=== PATIENT | female | born 1980 | race Caucasian/White ===

== ENCOUNTER 2016-11-29 16:00 | Emergency (ER) | payer BC ==
[2016-11-29 16:37] VITALS: BP 108/85
--- NOTE | 2016-11-29 16:57 | UC ---
Throat Pain/Nasal David HPI - HPI Summary HPI Summary: ST getting worse throughout the day, has had nasal congestion for 2-3 days. Has 3-y-o daughter who was dx with strep 4 days ago. No fever, vomiting, or rash. Pt has had tonsils removed. - History of Current Complaint Chief Complaint: UCGeneralIllness Stated Complaint: SORE THROAT Time Seen by Provider: 11/29/16 16:36 Hx Obtained From: Patient Hx Last Menstrual Period: 11/19/16 ?: No Onset/Duration: Gradual Onset, Lasting Hours Severity: Mild Cough: None - Allergies/Home Medications Allergies/Adverse Reactions: Allergies Allergy/AdvReac Type Severity Reaction Status Date / Time No Known Allergies Allergy Verified 11/29/16 16:37 Home Medications: Home Medications Methylphenidate ER TAB* [Concerta ER TAB*] 1 DAILY 11/29/16 [History] Omeprazole CAP* [Prilosec CAP* 20 MG] 1 DAILY 11/29/16 [History] buPROPion TAB* [Wellbutrin TAB*] 1 DAILY 11/29/16 [History] PMH/Surg Hx/FS Hx/Imm Hx Previously Healthy: Yes Endocrine History Of: Denies: Diabetes, Thyroid Disease Cardiovascular History Of: Denies: Cardiac Disorders, Hypertension Respiratory History Of: Denies: COPD, Asthma GI/ History Of: Denies: Ulcer - Surgical History Surgical History: Yes Surgery Procedure, Year, and Place: T&A - Family History Known Family History: Positive: None - Social History Lives: With Family Alcohol Use: Rare Substance Use Type: None Smoking Status (MU): Former Smoker When Did the Patient Quit Smoking/Using Tobacco: 1999 - Immunization History Most Recent Influenza Vaccination: none Most Recent Tetanus Shot: unsure Most Recent Pneumonia Vaccination: unsure Review of Systems Constitutional: Negative Skin: Negative Eyes: Negative ENT: Sore Throat Respiratory: Negative Cardiovascular: Negative Gastrointestinal: Negative Genitourinary: Negative Motor: Negative Neurovascular: Negative Musculoskeletal: Negative Neurological: Negative Psychological: Negative All Other Systems Reviewed And Are Negative: Yes Physical Exam Triage Information Reviewed: Yes Appearance: Well-Appearing, No Pain Distress, Well-Nourished Vital Signs: Initial Vital Signs Temp 98.3 F 11/29/16 16:32 Pulse 96 11/29/16 16:32 Resp 18 11/29/16 16:32 BP 108/85 11/29/16 16:32 Pulse Ox 98 11/29/16 16:32 Vital Signs Reviewed: Yes Eye Exam: Normal Eyes: Positive: Conjunctiva Clear ENT: Positive: Hearing grossly normal, TMs normal. Negative: Tonsillar exudate - s/p tonsillectomy Dental Exam: Normal Neck exam: Normal Neck: Positive: Supple, Nontender, No Lymphadenopathy Respiratory Exam: Normal Respiratory: Positive: Chest non-tender, Lungs clear, Normal breath sounds, No respiratory distress, No accessory muscle use Cardiovascular Exam: Normal Cardiovascular: Positive: RRR, No Murmur Musculoskeletal Exam: Normal Neurological Exam: Normal Neurological: Positive: Alert Psychological Exam: Normal Skin Exam: Normal Throat Pain/Nasal Course/Dx - Differential Dx/Diagnosis Provider Diagnoses: Pharyngitis, likely viral Discharge - Discharge Plan Condition: Stable Disposition: HOME Patient Education Materials: Pharyngitis (ED) Referrals: Keya Caba MD [Primary Care Provider] - 1 Week Additional Instructions: Rapid strep negative, throat culture pending. Call or return if you develop increasing fever, shortness of breath, chest pain , bloody sputum, or otherwise worsen. If you have not improved at all after several days, contact your primary care physician or return here.
== END 2016-11-29 17:10 | disposition home or self-care (01) ==
LOC: UCEAST 16:00
DX: J02.9 Acute pharyngitis, unspecified (principal); F17.210 Nicotine dependence, cigarettes, uncomplicated
CPT/HCPCS: 87070; 87651; 99211; G0463

== ENCOUNTER 2018-07-20 15:02 | Emergency (ER) | payer OTHER ==
--- NOTE | 2018-07-20 15:48 | ED ---
HPI Chest Pain - HPI Summary HPI Summary: Pt is a 38 y/o female who presents to the ED c/o CP. 2 weeks ago, she thought she was having a panic attack and was having palpitations. She happened to be with a physician, who said her BP was high and advised her to go to her PCP. Pt has not followed up with this. Yesterday, she was driving and felt a bubble going through her chest. Pt felt SOB and lightheaded, and near-syncopal. Today she still feels SOB and lightheaded, and also c/o left-sided neck tingling. She denies any current CP. Pt also has a hernia. She denies any cardiac history. - History of Current Complaint Chief Complaint: EDChestPainROMI Time Seen by Provider: 07/20/18 15:17 Hx Obtained From: Patient Hx Last Menstrual Period: 11/19/16 Onset/Duration: Started Weeks Ago - 2, Still Present Timing: Intermittent Current Severity: Moderate Pain Intensity: 3 Pain Scale Used: 0-10 Numeric Chest Pain Location: Diffuse Chest Pain Radiates: Yes Chest Pain Radiates To:: Neck - left, tingling Character: Other: - Unsure how to describe, "bubble" Aggravating Factor(s): Nothing Alleviating Factor(s): Nothing Associated Signs and Symptoms: Positive: Chest Pain, Tingling, Shortness of Breath, Lightheadedness - Allergy/Home Medications Allergies/Adverse Reactions: Allergies Allergy/AdvReac Type Severity Reaction Status Date / Time No Known Allergies Allergy Verified 07/20/18 15:13 PMH/Surg Hx/FS Hx/Imm Hx Endocrine/Hematology History: Denies: Hx Diabetes, Hx Thyroid Disease Cardiovascular History: Denies: Hx Hypertension Respiratory History: Denies: Hx Asthma, Hx Chronic Obstructive Pulmonary Disease (COPD) GI History: Denies: Hx Ulcer History: Reports: Other Problems/Disorders - Ovarian cysts - Cancer History Hx Chemotherapy: No Hx Radiation Therapy: No - Surgical History Surgery Procedure, Year, and Place: T&A Infectious Disease History: No Infectious Disease History: Denies: Hx Clostridium Difficile, Hx Hepatitis, Hx Human Immunodeficiency Virus (HIV), Hx of Known/Suspected MRSA, Hx Shingles, Hx Tuberculosis, Hx Known/ Suspected VRE, Hx Known/Suspected VRSA, History Other Infectious Disease, Traveled Outside the [place] in Last 30 Days - Family History Known Family History: Positive: Diabetes - Social History Alcohol Use: Occasionally Hx Substance Use: No Substance Use Type: Reports: None Hx Tobacco Use: Yes Smoking Status (MU): Former Smoker Review of Systems Positive: Chest Pain Positive: Shortness Of Breath Neurological: Other - Lightheadedness Positive: Paresthesia - Left neck, Syncope - Near All Other Systems Reviewed And Are Negative: Yes Physical Exam - Summary Physical Exam Summary: Appearance: The patient is well-nourished in no acute distress and in no acute pain. Skin: The skin is warm and dry and skin color reflects adequate perfusion. HEENT: The head is normocephalic and atraumatic. The pupils are equal and reactive. The conjunctivae are clear and without drainage. Nares are patent and without drainage. Mouth reveals moist mucous membranes and the throat is without erythema and exudate. The external ears are intact. The ear canals are patent and without drainage. The tympanic membranes are intact. Neck: The neck is supple with full range of motion and non-tender. There are no carotid bruits. There is no neck vein distension. Respiratory: Chest is non-tender. Lungs are clear to auscultation and breath sounds are symmetrical and equal. Cardiovascular: Heart is regular rate and rhythm. There is no murmur or rub auscultated. There is no peripheral edema and pulses are symmetrical and equal. No bruit. Abdomen: The abdomen is soft and non-tender. There are normal bowel sounds heard in all four quadrants and there is no organomegaly palpated. Musculoskeletal: There is no back tenderness noted. Extremities are non-tender with full range of motion. There is good capillary refill. There is no peripheral edema or calf tenderness elicited. Neurological: Patient is alert and oriented to person, place and time. The patient has symmetrical motor strength in all four extremities. Cranial nerves are grossly intact. Deep tendon reflexes are symmetrical and equal in all four extremities. Psychiatric: The patient has an appropriate affect and does not exhibit any anxiety or depression. Triage Information Reviewed: Yes Vital Signs On Initial Exam: Initial Vitals Temp Pulse Resp BP Pulse Ox 97.8 F 111 15 131/102 100 07/20/18 15:11 07/20/18 15:11 07/20/18 15:11 07/20/18 15:11 07/20/18 15:11 Vital Signs Reviewed: Yes Diagnostics - Vital Signs Vital Signs Temp Pulse Resp BP Pulse Ox 07/20/18 15:11 97.8 F 111 15 131/102 100 - Laboratory Result Diagrams: 07/20/18 15:47 07/20/18 15:46 Lab Statement: Any lab studies that have been ordered have been reviewed, and results considered in the medical decision making process. - Radiology CXR Radiology Interpretation Completed By: Radiologist Summary of Radiographic Findings: IMPRESSION: #. No evidence for acute intrathoracic disease. The ED physician reviewed this radiology report. - CT Chest/Thoracic CTA CT Interpretation Completed By: Radiologist Summary of CT Findings: IMPRESSION: No pulmonary embolism - EKG 15:19 Cardiac Rate: Tachycardia - 104 bpm EKG Rhythm: Sinus Rhythm Ectopy: None Summary of EKG Findings: Non-specific diffuse ST and T wave changes. Chest Pain Course/Dx - Course Course Of Treatment: Ms. Tellez presented to the emergency department complaining of chest pain which she characterizes as an uncomfortable feeling and sometimes heavy. She points to her sternal notch. She does complain a little bit of shortness of breath. She also complains sometimes of some uncomfortable/tingly feeling in the left side of her neck. On arrival she was nontoxic in appearance with normal vital signs although she was borderline tachycardic. This did improve during her stay. Her EKG showed only borderline tachycardia although there were diffuse nonspecific ST-T wave changes. Labs including a delayed troponin were within normal limits aside from a very slightly elevated d-dimer. For that reason a CTA was obtained and was negative. She remained stable on the monitor here without signs of ectopy. This is likely related to anxiety however that his diagnosis of exclusion and I recommended follow-up with her PCP and symptomatic treatment. - Diagnoses Provider Diagnoses: Chest pain Discharge - Sign-Out/Discharge Documenting (check all that apply): Patient Departure - DC - Discharge Plan Condition: Stable Disposition: HOME Patient Education Materials: Chest Pain (ED) Referrals: Keya Caba MD [Primary Care Provider] - Additional Instructions: Follow up with your PCP in 2 days Return to ED for any new or worsening symptoms - Billing Disposition and Condition Condition: STABLE Disposition: Home - Attestation Statements Document Initiated by Scribe: Yes Documenting Scribe: Daisy Dixon Provider For Whom Scribe is Documenting (Include Credential): Dave Garcia MD Scribe Attestation: IDaisy and Glenda Dixon , scribed for Dave Garcia MD on 07/20/18 at 2135. Scribe Documentation Reviewed: Yes Provider Attestation: The documentation as recorded by the scribe, Daisy Tomas and Glenda Dixon accurately reflects the service I personally performed and the decisions made by me, Dave Garcia MD Status of Scribe Document: Viewed
[2018-07-20 15:55] LABS: ABS Basophils 0 10^3/ul (0-0.2); ABS Eosinophils 0.1 10^3/ul (0-0.6); ABS Lymphocytes 2.7 10^3/ul (1.0-4.8); ABS Monocytes 0.5 10^3/ul (0-0.8); ABS Neutrophils 4.4 10^3/ul (1.5-7.7); ABS Nucleated RBC 0 10^3/ul; Hematocrit 42 % (35-47); Hemoglobin 14.5 g/dl (12.0-16.0); Lymphocyte % 35.1 %; Mean Corpuscular HGB Conc 34 g/dl (31-36); Mean Corpuscular Hemoglobin 30 pg (27-31); Mean Corpuscular Volume 88 fL (80-97); Mean Platelet Volume 6.7 fL (7.4-10.4); Nucleated Red Blood Cells % 0; Platelet Count 336 10^3/ul (150-450); Red Blood Count 4.83 10^6/ul (4.00-5.40); Red Cell Distribution Width 13 % (10.5-15); White Blood Count 7.8 10^3/ul (3.5-10.8)
[2018-07-20 16:24] LABS: INR 0.91 (0.77-1.02)
[2018-07-20] MEDS ORDERED: Iohexol 350* (CONTRAST) 500 ML MDV IV ONE (18:33)
[2018-07-20 22:00] VITALS: BP 125/81
== END 2018-07-20 22:01 | disposition home or self-care (01) ==
LOC: ED 15:02
DX: R07.9 Chest pain, unspecified (principal); Z87.891 Personal history of nicotine dependence
CPT/HCPCS: 36415; 71045; 71275; 80053; 83605; 84443; 84484; 85025; 85379; 85610; 93005; 96374; 99284; Q9967

== ENCOUNTER 2018-09-12 08:19 | Emergency (ER) | payer OTHER ==
[2018-09-12 08:34] VITALS: BP 133/83
--- NOTE | 2018-09-12 08:40 | UC ---
Shoulder Pain HPI - HPI Summary HPI Summary: Pt presents to with right shoulder pain s/p fall 8 days ago. Pt did not strike head or LOC. Pt with persistent pain right anterior shoulder. Pain increases with movement - extension, abduction. No previous injury to same. Pt RHD. Pt has taken MOtrin and used CBD oil with little improvement. Pt is a massage therapist and aggravates shoulder. No paresthesia. Pt denies elbow, wrist pain. PT did develop abraison right elbow - unknown last tetanus - pt declined booster today. Pt states she is getting tightness in upper back from splinting arm Not medications reviewed this visit - History of Current Complaint Chief Complaint: UCUpperExtremity Stated Complaint: SHOULDER INJURY Time Seen by Provider: 09/12/18 08:39 Hx Obtained From: Patient Hx Last Menstrual Period: 09/09/18 Onset/Duration: Sudden Onset Timing: Constant Severity Initially: Mild Severity Currently: Mild Location Of Pain: Is Discrete @ - right anterior shoulder Pain Intensity: 2 Character: Sharp, Spasmodic, Stiffness Aggravating Factor(s): Movement, Lifting, Extension, Abduction Alleviating Factor(s): Rest Associated Signs And Symptoms: Positive: Negative - Allergies/Home Medications Allergies/Adverse Reactions: Allergies Allergy/AdvReac Type Severity Reaction Status Date / Time No Known Allergies Allergy Verified 07/20/18 15:13 PMH/Surg Hx/FS Hx/Imm Hx Previously Healthy: Yes - Surgical History Surgical History: Yes Surgery Procedure, Year, and Place: T&A - Family History Known Family History: Positive: Diabetes, Non-Contributory - Social History Occupation: Employed Full-time Lives: With Family Alcohol Use: Occasionally Substance Use Type: None Smoking Status (MU): Former Smoker When Did the Patient Quit Smoking/Using Tobacco: 1999 - Immunization History Most Recent Influenza Vaccination: none Most Recent Tetanus Shot: unsure Most Recent Pneumonia Vaccination: unsure Review of Systems All Other Systems Reviewed And Are Negative: Yes Constitutional: Positive: Negative Skin: Positive: Other - scab right elbow Musculoskeletal: Positive: Other: - right anterior shoulder Neurological: Positive: Negative. Negative: Paresthesia, Numbness Physical Exam - Summary Physical Exam Summary: Vital Signs Reviewed: Yes A+Ox3, no distress Eyes: Conjunctiva Clear ENT: Hearing grossly normal neck: supple Respiratory: Positive: No respiratory distress, No accessory muscle use, CTA throughout no w/r Cardiovascular: skin color reflect adequate perfusion 2+ radial, 2+ ulnar CBT < 2 sec Musculoskeletal Exam: No pain c/t/l/s Full AROM no pain along clavicle. Pt with pain with palp right anterior shoulder. + full flexion/extension wrist, elbow + pronate/supinate elbow. + extension limited second to pain at 45 degrees. Passive extension greater than 45 degrees. + abduction with discomfort greater than 20 degrees. + passive abduction to 90. Neurological: Positive: Alert, ambulatory without difficulty. 5/5 grasp + thumb up, a ok, finger spread, finger cross + gross sensation throughout Psychological: Positive: Normal Response To Family Skin: Positive: no rash, no ecchymosis, pt with scabbed abrasion right elbow. no concern for celluitis Triage Information Reviewed: Yes Vital Signs: Initial Vital Signs Temp 97.9 F 09/12/18 08:27 Pulse 87 09/12/18 08:27 Resp 18 09/12/18 08:27 BP 133/83 09/12/18 08:27 Pulse Ox 100 09/12/18 08:27 Diagnostics - Radiology No standard instances Radiology Interpretation Completed By: Radiologist - Patient Name: AASHISH LEÓN Medical Record#: [id number] Ordering Physician: Fernanda Rivas MD Acct.#: [id number] : 1980 Age: 38 Sex: F Location: [facility] Exam Date: 09/12/18904 ADM Status: REG ER Order Information: SHOULDER RIGHT 2+ VWS Accession Number: [id number] CPT: 74555 INDICATION: Right anterior shoulder pain since a fall 8 days earlier COMPARISON: None. TECHNIQUE: 4 views of the right shoulder were obtained. FINDINGS: The adequately corticated bones are in normal alignment. Joint spaces appear maintained. No fracture, dislocation or focal bony abnormality is seen. IMPRESSION: Normal radiograph of the right shoulder. If the patient's symptoms persist, follow-up imaging is recommended. <Electronically signed by Mayo Edwards MD in OV> 09/12/18935 Dictated By: Mayo Edwards MD Dictated Date/Time: 09/12/18935 Transcribed Date/Time: 09/12/18934 Copy to: CC:Keya Caba MD; Fernanda Rivas MD Imaging - [facility] Imaging - [facility] Imaging - [facility] [address] [facility] [address] [place], [place] [id number] [place] [id number] [place] [id number] ph ([phone]) ph ([phone]) ph ([phone]) This report is only to be considered final once signed by the Provider(s) as displayed in the "<Electronically Signed by >" field (s). Absence of a signature indicates the report is in a draft status and still needs to be finalized. In the event this document was created by someone other than the signing Provider, the individual initiating the document will be listed in the "Entered by:" or "Dictated by:" estrella. 1 of 1 Shoulder Course/Dx - Course Course Of Treatment: Pt presents with ongoing pain right anterior shoulder s/p mechanical fall 8 days ago. No other injuries. Pt with pain with active extension and abduction - passive ROM. Will check imaging for avulsion fracture. 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 sling for comfort. heat. ROM elbow and small circles at shoulder. ice. f/u with sports medicine. Pt declined tetanus booster - Differential Dx/Diagnosis Provider Diagnosis: Right shoulder injury Discharge - Sign-Out/Discharge Documenting (check all that apply): Patient Departure All imaging exams completed and their final reports reviewed: Yes - Discharge Plan Condition: Stable Disposition: HOME Patient Education Materials: Rotator Cuff Injury (ED), Shoulder Sprain (ED) Referrals: [facility] [Provider Group] (An appointment has been made for your this morning at 10am with Dr. Gibson. Go directly to her office -she is expecting you) Keya Caba MD [Primary Care Provider] - Lashlel Gibson MD [Medical Doctor] - Additional Instructions: - Wear sling for comfort and support. relax your shoulder so the sling holds the weight of your shoulder - Take your arm outside of your sling and fully bend/stretching of elbow and makes small circles at your shoulder as demonstrated in the urgent care - apply ice (20 min at a time) every 2-3 hours for the next 2 days --Okay to alternate ibuprofen (Advil, Motrin) and Tylenol every 3 hours for pain. Take with food. Do NOT take for more than 4-5 days. - You have an appointment scheduled today at 10am with the sports medicine provider. Go directly to her office - she is expecting you. - Billing Disposition and Condition Condition: STABLE Disposition: Home
== END 2018-09-12 09:39 | disposition home or self-care (01) ==
LOC: UCEAST 08:19
DX: S49.91XA Unspecified injury of right shoulder and upper arm, initial encounter (principal); W19.XXXA Unspecified fall, initial encounter; Y92.9 Unspecified place or not applicable; Z87.891 Personal history of nicotine dependence
CPT/HCPCS: 99212; G0463